=== PATIENT | female | born 1995 | race Caucasian/White ===

== ENCOUNTER 2017-09-03 12:07 | Emergency (ER) | payer OTHER ==
[~2017-09-03] VITALS: Ht 167.6 cm; Wt 128.0 kg
[~2017-09-03 12:07] MED LIST: RANI150 PO; ZOFR4TAB3 SL
[2017-09-03 12:09] VITALS: BP 174/85; PULSE 108; RESP 18; TEMP 98.8; O2SAT 98
--- NOTE | 2017-09-03 13:29 | PD ---
HPI Chief Complaint: Cold / Flu Symptoms Time Seen by Provider: 13:15 Travel History International Travel<30 days: No Contact w/Intl Traveler<30days: No Traveled to known affect area: No History of Present Illness HPI Patient is a 21-year-old female who presents to emergency room with complaints of productive cough. Patient reports symptoms have been ongoing for the past few days, reports that her niece is sick with similar symptoms. Patient denies any fever or chills, reports no recent travels or trips. Patient reports that she has had increased nasal congestion with postnasal drip. PFSH Past Medical History Asthma: Yes (bronchitis) Autoimmune Disease: No Blood Disorders: No Anxiety: No Depression: Yes Cardiovascular Problems: No Developmental Delay: No Gastrointestinal Disorders: Yes Genitourinary: No Headaches: Yes Neurologic: Yes Psychiatric: No Immunizations Current: Yes ?: Not LMP: 2 weeks ago Past Surgical History Surgical History: No Previous Surgery Other Surgery: No Social History Alcohol Use: No Tobacco Use: No Substance Use: No Allergies-Medications (Allergen,Severity, Reaction): Coded Allergies: No Known Allergies (Verified Adverse Reaction, Unknown, 09/03/17) Reported Meds & Prescriptions Reported Meds & Active Scripts Active No Active Prescriptions or Reported Medications Review of Systems General / Constitutional: No: Fever Eyes: No: Visual changes HENT: Positive: Rhinitis, Rhinorrhea, No: Headaches Cardiovascular: No: Chest Pain or Discomfort Respiratory: Positive: Cough, No: Shortness of Breath, Wheezing Gastrointestinal: No: Abdominal Pain Genitourinary: No: Dysuria Musculoskeletal: No: Pain Skin: No Rash Neurologic: No: Weakness Psychiatric: No: Depression Endocrine: No: Polydipsia Hematologic/Lymphatic: No: Easy Bruising Physical Exam Narrative GENERAL: Well-nourished, well-developed patient. SKIN: Focused skin assessment warm/dry. HEAD: Normocephalic. EYES: No scleral icterus. No injection or drainage. NECK: Supple, trachea midline. No JVD or lymphadenopathy. CARDIOVASCULAR: Regular rate and rhythm without murmurs, gallops, or rubs. RESPIRATORY: Breath sounds equal bilaterally. No accessory muscle use. GASTROINTESTINAL: Abdomen soft, non-tender, nondistended. MUSCULOSKELETAL: No cyanosis, or edema. BACK: Nontender without obvious deformity. No CVA tenderness. Data Data Last Documented VS Vital Signs Date Time Temp Pulse Resp B/P (MAP) Pulse Ox O2 Delivery O2 Flow Rate FiO2 09/03/17 12:34 99 Room Air 09/03/17 12:09 98.8 108 18 174/85 (114) Orders Orders Influenzae A/B Antigen (09/03/17 12:36) Chest, Pa & Lat (09/03/17 12:36) Ed Urine Pregnancytest Poc (09/03/17 12:36) Azithromycin (Zithromax) (09/03/17 14:00) MDM Medical Decision Making Medical Screen Exam Complete: Yes Emergency Medical Condition: Yes Medical Record Reviewed: Yes Interpretation(s) Vital Signs Date Time Temp Pulse Resp B/P (MAP) Pulse Ox O2 Delivery O2 Flow Rate FiO2 09/03/17 12:34 99 Room Air 09/03/17 12:09 98.8 108 18 174/85 (114) 98 Differential Diagnosis Pneumonia, influenza, bronchitis Narrative Course 21-year-old female who presents to emergency room with complaints of a wet cough for the past few days. Patient with no fever or chills, no nausea or vomiting, reports that her little niece is sick with similar symptoms. Patient overall nontoxic and evaluation. Influenza screen as well as x-ray of the chest was ordered. Microbiology Date/Time Source Procedure Growth Status 09/03/17 13:00 Nasal Aspirate Influenza Types A,B Antigen ([facility]AN[facility]) - Final NEGATIVE FOR FLU A AND B ANTIGEN.... Complete Last Impressions Chest X-Ray 09/03/17 1236 Signed Impressions: Service Date/Time: Sunday, September 03, 2017 12:48 - CONCLUSION: No acute disease. Wm Schilling MD Influenza negative, x-ray of the chest negative, patient with most likely bronchitis. Plan to have patient follow up with her primary care doctor and return to emergency room as needed. Diagnosis Primary Impression: Bronchitis Patient Instructions: General Instructions Additional Instructions: Please follow-up with your primary care doctor Return to the emergency room as needed Drink plenty of fluids Med/Other Pt SpecificInfo: Prescription(s) given Scripts Albuterol 8.5 GM Inh (Proair Hfa 8.5 GM Inh) 90 Mcg/Act Aer 2 PUFF INH Q4-6H Y for SHORTNESS OF BREATH, #1 INHALER 0 Refills 108 mcg/actuation Prov: Tala Odonnell DO 09/03/17 Azithromycin (Azithromycin) 500 Mg Tab 500 MG PO DAILY for Infection, #5 TAB 0 Refills Prov: Tala Odonnell DO 09/03/17 Disposition: 01 DISCHARGE HOME Condition: Stable Tala Odonnell DO Sep 03, 2017 13:29
--- NOTE | 2017-09-03 13:31 | RADRPT ---
EXAM DATE/TIME: 09/03/2017 12:48 [facility] COMPARISON: No previous studies available for comparison. INDICATIONS : Cough, congestion, nausea, vomiting since tuesday. MEDICAL HISTORY : None. SURGICAL HISTORY : None. ENCOUNTER: Initial ACUITY: 4 - 6 days PAIN SCORE: 2/10 LOCATION: Bilateral lower chest FINDINGS: PA and lateral views of the chest demonstrate the lungs to be symmetrically aerated without evidence of mass, infiltrate or effusion. The cardiomediastinal contours are unremarkable. Osseous structure s are intact. CONCLUSION: No acute disease. Wm Schilling MD on September 03, 2017 at 13:29 Board Certified Radiologist. This report was verified electronically.
[2017-09-03] MEDS ORDERED: AZIT500T2 PO (13:57)
[2017-09-03] MEDS ORDERED: ALBUAER3 INH (13:57)
[2017-09-03] MEDS ORDERED: AZITHROMYCIN 250 MG TAB PO ONE (14:00)
== END 2017-09-03 14:35 | disposition home or self-care (01) ==
LOC: NEPD 12:07
DX: J40 Bronchitis, not specified as acute or chronic (principal); F32.9 Major depressive disorder, single episode, unspecified
CPT/HCPCS: 71020; 84703; 87804; 99285